=== PATIENT | male | born 1945 | race Caucasian/White ===

== ENCOUNTER 2019-07-22 12:09 | Outpatient (CLI) | payer MEDICARE, OTHER ==
--- NOTE | 2019-07-26 10:38 | CT Report ---
Reason: NICOTINE DEPENDENCE Procedure Date: 07/22/2019 Accession Number: [id number] / [id number] Procedure: CT - Low Dose Lung Cancer Screen CPT Code: Final Report FULL RESULT: EXAM CT LUNG SCREEN EXAM DATE: 07/22/2019 12:44 PM. HISTORY: 73-year-old patient with [id number] smoking history. Currently smoking: Unknown. COMPARISON: None. TECHNIQUE: CT examination of the entire thorax without contrast was performed using low-dose technique. Thin section coronal, axial, sagittal and MIP axial images were obtained. In accordance with CT protocol optimization, one or more of the following dose reduction techniques were utilized for this exam: automated exposure control, adjustment of mA and/or KV based on patient size, or use of iterative reconstructive technique. FINDINGS: Nodules: Right upper lobe: 1. A 2 mm nodule is present in the apical segment (series 4, image 33). 2. A 3 mm juxtapleural nodule is present in the posterior segment (series 4, image 42). Right middle lobe: None. Right lower lobe: 1. A 2 mm nodule is present in the anterior basilar segment (series 4, image 29). Left upper lobe: None. Left lower lobe: 1. A 3 mm nodule is present in the superior segment (series 4, image 60). Emphysema: No significant emphysematous change. Pleura: No pleural effusion is demonstrated. There are areas of pleural calcification in the left hemithorax, such as at the left apex (series 6, image 44) and anterior chest (series 3, image 37). Aorta: There is moderate atherosclerotic calcification. No aneurysm. Mediastinum: Unremarkable. Coronary calcifications: Multivessel coronary artery calcification. Other pulmonary findings: Mild bilateral dependent atelectasis demonstrated. Other extrapulmonary findings: There is mild dilation of the upper pole calyces of the left kidney (series 3, image 64 and series 6, image 52). The visualized interpolar region and lower pole calyces are not dilated. Atherosclerotic calcification of the abdominal aorta is demonstrated. IMPRESSION: 1. Subcentimeter pulmonary nodules in the right upper lobe, right lower lobe, and left lower lobe. 2. Mild, unilateral pleural calcifications in the left hemithorax. Findings could represent sequela of previous complicated pleural effusion. Asbestos related pleural disease is also a consideration although it is typically bilateral. 3. Mild asymmetric dilation of the upper pole calyces of the left kidney. Finding is nonspecific and could be secondary to benign phenomenon, such as vesicoureteral reflux. However, sequela of urothelial neoplasm is not excluded. Recommend comparison to prior examinations. If there are no prior examinations or if this is a new finding, recommend CT IVP for further evaluation. Lung-RADS ASSESSMENT CATEGORY: 2S - Benign appearance or behavior of pulmonary nodules. S qualifier utilized for left renal finding. Probability of malignancy: Less than 1%. RECOMMENDATION: Continue annual screening with low-dose chest CT in 12 months. [facility]
== END 2019-07-22 12:10 | disposition home or self-care (01) ==
LOC: DI 12:09
PROVIDERS: ATTEND Student in an Organized Health Care Education/Training Program
DX: Z12.2 Encounter for screening for malignant neoplasm of respiratory organs (principal); R91.8 Other nonspecific abnormal finding of lung field; F17.210 Nicotine dependence, cigarettes, uncomplicated